=== PATIENT | male | born 1975 | race Hispanic/Latino ===

== ENCOUNTER 2018-10-12 21:16 | Emergency (ER) | payer SELFPAY ==
[2018-10-12 21:54] LABS: #Eosinphils 0.3 thou/uL (0.0-0.7); #Lymphocytes 3.1 thou/uL (1.20-3.40); #Monocytes 0.6 thou/uL (0.11-0.59); #Neutrophils 5.4 thou/uL (1.40-6.50); %Basophils 0.4 % (0.0-1.0); %Eosinophils 3.6 % (0.0-10.0); %Lymphocytes 33.1 % (21.0-51.0); %Monocytes 6.4 % (0.0-10.0); %Neutrophils 56.6 % (42.0-75.0); Hemoglobin 15.6 g/dL (14.0-18.0); Mean Corpuscular HGB CONC 32.9 g/dL (32.0-36.0); Mean Corpuscular Hemoglobin 29.7 pg (27.0-31.0); Mean Corpuscular Volume 90.2 fL (78.0-98.0); Mean Platelet Volume 10.5 fL (7.4-10.4); Platelet Count 152 thou/uL (130-400); Red Blood Cell (RBC) Count 5.25 mill/uL (4.70-6.10); White Blood Cell (WBC) Count 9.5 thou/uL (4.8-10.8)
[2018-10-12 22:16] LABS: ALT (SGPT) 34 U/L (8-55); AST (SGOT) 27 U/L (5-34); Albumin 4.3 g/dL (3.5-5.0); Alkaline Phosphatase 89 U/L (40-150); Anion Gap 13 mmol/L (10-20); BUN (Urea Nitrogen) 12 mg/dL (8.9-20.6); Bilirubin, Total 0.3 mg/dL (0.2-1.2); Calc. Creatinine Clearance 0 mL/min (70-130); Carbon Dioxide 25 mmol/L (22-29); Chloride 104 mmol/L (98-107); Estimated GFR-MDRD Greater than 90; Globulin 3.2 g/dL (2.4-3.5); Glucose 145 mg/dL (70-105); Lipase 36 U/L (8-78); Potassium 3.6 mmol/L (3.5-5.1); Protein, Total 7.5 g/dL (6.0-8.3); Sodium 138 mmol/L (136-145)
[2018-10-12 22:39] LABS: Bilirubin Negative (Negative); Blood, Urine 1+ (Negative); Clarity Clear (Clear); Glucose, Urine (Dipstick) Normal (Negative); Leukocyte Negative Leu/uL (Negative); Mucous/LPF Rare LPF (<2+); Nitrite Negative (Negative); Protein, Urine (Dipstick) 10 mg/dL (Neg-Trace); RBC/HPF 21-50 HPF (0-3); Squamous Epithelial None Seen HPF (0-3); WBC/HPF 0-3 HPF (0-3)
[2018-10-12 22:50] LABS: Bacteria/HPF Rare-Few HPF (None Seen)
[2018-10-12] MEDS ORDERED: Ketorolac Tromethamine 30 MG/ML VIAL ONE (23:27)
[2018-10-12] MEDS ORDERED: Morphine 4 MG/ML VIAL ONE (23:27)
[2018-10-12] MEDS ORDERED: Ondansetron PF 4 MG/2 ML Vial ONE (23:27)
--- NOTE | 2018-10-12 23:59 | CT ---
CT Stone Protocol 10/12/2018 11:00 PM HISTORY: Right flank and lower abdominal pain for 8 days. COMPARISON: None. Technique: Multiple contiguous axial CT images are obtained through the abdomen and pelvis without IV contrast. Coronal reformats are provided. FINDINGS: This examination is limited for the evaluation of solid organs and vascular structures due to the lac k of intravenous contrast. Lower Chest: Minimal reticulonodular densities are seen at each lung base which are nonspecific but m ay related to infectious or inflammatory process. Abdomen: Liver: Grossly normal nonenhanced CT appearance. Gallbladder: Within normal limits for CT imaging. Pancreas: Grossly normal nonenhanced CT appearance. Spleen: Grossly normal nonenhanced CT appearance. Adrenals: Grossly normal nonenhanced CT appearance. Kidneys: No left renal calculus or hydronephrosis is seen. There is a 1.9 cm x 1.1 cm calculus seen in the right renal pelvis with additional nonobstructing sma ller right renal calculi in the midportion and inferior pole right kidney. There is mild right hydronephrosis. Ureters: No ureteral calculus is seen.. Pelvis: Urinary bladder: within normal limits. Reproductive Organs: No pelvic masses. Lymph Nodes: No enlarged lymph nodes. Bowel: Normal caliber. Appendix: The appendix is normal in caliber. Peritoneum: No free fluid, free air, or fluid collection. Retroperitoneum: within normal limits. Vessels: Abdominal aorta is normal in caliber.. Abdominal Wall: Small fat-containing umbilical hernia is seen. There is also a small fat-containing l eft inguinal canal. Bones: Mild degenerative changes seen in the visualized lower thoracic spine. IMPRESSION: 1. Prominent calculus right renal pelvis with mild right hydronephrosis. 2. Additional nonobstructing smaller right renal calculi. 3. No left renal calculus is seen, and there are no ureteral calculi seen bilaterally. 4. Small fat-containing umbilical hernia.
[2018-10-13] MEDS ORDERED: Morphine 4 MG/ML VIAL ONE ×2 (00:53→02:01)
== END 2018-10-13 02:07 | disposition home or self-care (01) ==
LOC: ERS 21:16
DX: N13.2 Hydronephrosis with renal and ureteral calculous obstruction (principal)
CPT/HCPCS: 36415; 74176; 80053; 81003; 81015; 83690; 85025; 96361; 96374; 96375; 96376; J1885; J2270; J2405